=== PATIENT | male | born 1960 | race Caucasian/White ===

== ENCOUNTER 2022-01-23 13:26 | Inpatient (IN) | payer OTHER ==
[~2022-01-23] VITALS: Ht 167.6 cm; Wt 59.0 kg
[2022-01-23] MEDS ORDERED: OMEPRAZOLE40 MG (20:44)
[2022-01-23] MEDS ORDERED: GLIPIZIDE ER10 MG (20:44)
[2022-01-23] MEDS ORDERED: METFORMIN HCL1000 M3 (20:44)
[2022-01-23] MEDS ORDERED: RAYOS1 MG (20:44)
[2022-01-23] MEDS ORDERED: LYSODREN500 MG (20:44)
[2022-01-23] MEDS ORDERED: XGEVA120 MG/1.7 (20:44)
[2022-01-23] MEDS ORDERED: COMFORT (20:45)
[2022-01-23] MEDS ORDERED: ROSUVASTATIN CA40 MG (20:45)
[2022-01-23] MEDS ORDERED: ATENOLOL50 MG (20:45)
[2022-01-28] MEDS ORDERED: AMLODIPINE BESYL5 MG PO (17:35)
[2022-01-28] MEDS ORDERED: CARdura 4MG TABLET PO (17:35)
[2022-01-28] MEDS ORDERED: LOSARTAN POTAS100 MG PO (17:36)
[2022-01-28] MEDS ORDERED: METOPROLOL TAR100 MG PO (17:37)
[2022-01-28] MEDS ORDERED: LYSODREN500 MG PO (17:37)
[2022-01-28] MEDS ORDERED: ROSUVASTATIN CA40 MG PO (17:38)
[2022-01-28] MEDS ORDERED: CLONAZEPAM1 MG PO (17:39)
[2022-01-28] MEDS ORDERED: OMEPRAZOLE40 MG PO (17:40)
[2022-01-28] MEDS ORDERED: GLIPIZIDE ER10 MG PO (17:41)
[2022-01-28] MEDS ORDERED: METFORMIN HCL1000 M3 PO (17:42)
[2022-01-28] MEDS ORDERED: PROTEINEX-18 LI30 ML PO (17:42)
== END 2022-01-28 18:27 | disposition home or self-care (01) | DRG 305 ==
LOC: SURG 13:26 → MEDJ 18:12 → MEDI 01-24 19:57
PROVIDERS: ADMIT Internal Medicine Hematology & Oncology; ATTEND Internal Medicine Hematology & Oncology
PROC: BW28ZZZ Computerized Tomography (CT Scan) of Head (ICD-10-PCS; principal; 2022-01-23)
PROC: 4A12X4Z Monitoring of Cardiac Electrical Activity, External Approach (ICD-10-PCS; 2022-01-23)
PROC: B24BZZZ Ultrasonography of Heart with Aorta (ICD-10-PCS; 2022-01-24)
DX: I16.0 Hypertensive urgency (principal); C74.91 Malignant neoplasm of unspecified part of right adrenal gland; C79.51 Secondary malignant neoplasm of bone; G45.8 Other transient cerebral ischemic attacks and related syndromes; I49.8 Other specified cardiac arrhythmias; U09.9 Post COVID-19 condition, unspecified; R55 Syncope and collapse; I10 Essential (primary) hypertension; Z20.822 Contact with and (suspected) exposure to COVID-19; E11.9 Type 2 diabetes mellitus without complications; Z79.4 Long term (current) use of insulin

== ENCOUNTER 2023-04-15 15:21 | Inpatient (IN) | payer OTHER ==
[~2023-04-15] VITALS: Ht 167.6 cm; Wt 54.4 kg
[~2023-04-15 15:21] MED LIST: AMLODIPINE BESYL5 MG PO; ATENOLOL50 MG; CARdura 4MG TABLET PO; CLONAZEPAM1 MG PO; COMFORT; GLIPIZIDE ER10 MG; GLIPIZIDE ER10 MG PO; LOSARTAN POTAS100 MG PO; LYSODREN500 MG; LYSODREN500 MG PO; METFORMIN HCL1000 M3; METFORMIN HCL1000 M3 PO; METOPROLOL TAR100 MG PO; OMEPRAZOLE40 MG; OMEPRAZOLE40 MG PO; PROTEINEX-18 LI30 ML PO; RAYOS1 MG; ROSUVASTATIN CA40 MG; ROSUVASTATIN CA40 MG PO; XGEVA120 MG/1.7
[2023-04-16] MEDS ORDERED: LANTUS SOL100 UNIT/1 (10:09)
[2023-04-16] MEDS ORDERED: ATENOLOL100 MG (10:09)
[2023-04-16] MEDS ORDERED: DOXAZOSIN MESYLA4 MG (10:09)
[2023-04-16] MEDS ORDERED: NIFEDIPINE ER60 M1 (10:11)
[2023-04-16] MEDS ORDERED: ATORVASTATIN CA40 MG (10:11)
[2023-04-16] MEDS ORDERED: ISOSORBIDE MONO60 M2 (10:11)
[2023-04-16] MEDS ORDERED: BACLOFEN10 MG (10:19)
== END 2023-04-17 19:19 | disposition expired | DRG 644 ==
LOC: SEC-K 15:21 → MEDI 15:39
PROVIDERS: ADMIT Internal Medicine Hematology & Oncology; ATTEND Internal Medicine Hematology & Oncology
PROC: 4A12X4Z Monitoring of Cardiac Electrical Activity, External Approach (ICD-10-PCS; 2023-04-15)
PROC: 5A1935Z Respiratory Ventilation, Less than 24 Consecutive Hours (ICD-10-PCS; principal; 2023-04-17)
PROC: 0BH18EZ Insertion of Endotracheal Airway into Trachea, Via Natural or Artificial Opening Endoscopic (ICD-10-PCS; 2023-04-17)
PROC: 02HV33Z Insertion of Infusion Device into Superior Vena Cava, Percutaneous Approach (ICD-10-PCS; 2023-04-17)
DX: C00-D49 Neoplasms (principal); C79.51 Secondary malignant neoplasm of bone; E46 Unspecified protein-calorie malnutrition; Z68.1 Body mass index [BMI] 19.9 or less, adult; E11.65 Type 2 diabetes mellitus with hyperglycemia; Z79.4 Long term (current) use of insulin
CPT/HCPCS: 240